=== PATIENT | female | born 1960 | race Caucasian/White ===

== ENCOUNTER 2019-11-24 16:53 | Emergency (ER) | payer OTHER, SELFPAY ==
--- NOTE | ~2019-11-24 | XR_ITS ---
EXAMINATION: XR shoulder LT min 2V DATE: 11/24/2019 17:32 INDICATION: Left shoulder pain. Fall. TECHNIQUE: 4 views of left shoulder were obtained. COMPARISON: Chest 2 views 03/29/2019 FINDINGS: There is new inferior dislocation of the acromion with respect to distal clavicle. There is widening of the coracoclavicular interval, consistent with coracoclavicular ligament tear. No fractu re. There is mild left glenohumeral joint osteoarthritis. IMPRESSION: 1. Type III left acromioclavicular separation. Reviewed, dictated and finalized at location A.
[2019-11-24 17:11] VITALS: BP 123/84; PULSE 99; RESP 16; TEMP 35.7; O2SAT 97
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
[2019-11-24 17:31] VITALS: TEMP 36.9
[2019-11-24] MEDS: KETOROLAC (*BKC) 60 MG/2 ML VIAL IM (17:38)
== END 2019-11-24 17:47 | disposition home or self-care (01) ==
PROVIDERS: Emergency Provider Nurse Practitioner Family
DX: S43.142A Inferior dislocation of left acromioclavicular joint, initial encounter (principal); J44.9 Chronic obstructive pulmonary disease, unspecified; K21.9 Gastro-esophageal reflux disease without esophagitis; M19.012 Primary osteoarthritis, left shoulder; F17.210 Nicotine dependence, cigarettes, uncomplicated; W19.XXXA Unspecified fall, initial encounter
CPT/HCPCS: 73030; 96372; 99213; A4565; G0463; J1885

== ENCOUNTER 2020-10-04 11:21 | Emergency (ER) | payer OTHER, SELFPAY ==
--- NOTE | ~2020-10-04 | XR_ITS ---
EXAMINATION: XR shoulder RT min 2V DATE: 10/04/2020 12:01 INDICATION: Lateral right shoulder pain. TECHNIQUE: AP internally and externally rotated, AP oblique externally rotated and transscapular Y vi ews of the right shoulder were obtained. COMPARISON: None FINDINGS: Normal alignment. No fracture.Glenohumeral joint space is normal with small marginal osteophyte at t he inferior glenoid. Mild acromion clavicular osteoarthritis with small inferiorly directed osteophyt e. Soft tissues are unremarkable. Visualized portions of the lungs are clear. Calcified right hilar l ymph nodes consistent with old granulomatous disease. IMPRESSION: Mild acromioclavicular and minimal glenohumeral osteoarthritis. No acute osseous abnormality. Reviewed, dictated and finalized at location A. IMPRESSION: Mild acromioclavicular and minimal glenohumeral osteoarthritis. No acute osseou s abnormality.
[2020-10-04 11:32] VITALS: BP 101/68; PULSE 80; RESP 16; TEMP 35.9; O2SAT 98
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
== END 2020-10-04 12:23 | disposition home or self-care (01) ==
PROVIDERS: Emergency Provider Nurse Practitioner Family; PCP Family Medicine
DX: M25.511 Pain in right shoulder (principal); F17.210 Nicotine dependence, cigarettes, uncomplicated; M19.90 Unspecified osteoarthritis, unspecified site; J44.9 Chronic obstructive pulmonary disease, unspecified; K21.9 Gastro-esophageal reflux disease without esophagitis
CPT/HCPCS: 73030; 99213; A4565; G0463

== ENCOUNTER 2020-10-31 10:54 | Emergency (ER) | payer OTHER, SELFPAY ==
[2020-10-31 11:03] VITALS: BP 99/69; PULSE 84; RESP 18; TEMP 36.4; O2SAT 98
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
[2020-10-31 11:13] VITALS: BP 99/69; PULSE 84; RESP 18; TEMP 36.4; O2SAT 98
== END 2020-10-31 11:41 | disposition home or self-care (01) ==
PROVIDERS: Emergency Provider Registered Nurse; PCP Family Medicine
DX: L08.9 Local infection of the skin and subcutaneous tissue, unspecified (principal); S50.861A Insect bite (nonvenomous) of right forearm, initial encounter; S40.861A Insect bite (nonvenomous) of right upper arm, initial encounter; W57.XXXA Bitten or stung by nonvenomous insect and other nonvenomous arthropods, initial encounter; F17.210 Nicotine dependence, cigarettes, uncomplicated; F41.9 Anxiety disorder, unspecified; M19.90 Unspecified osteoarthritis, unspecified site; J44.9 Chronic obstructive pulmonary disease, unspecified; K21.9 Gastro-esophageal reflux disease without esophagitis
CPT/HCPCS: 99213; G0463

== ENCOUNTER 2021-02-28 11:06 | Emergency (ER) | payer OTHER, SELFPAY ==
[2021-02-28 12:11] VITALS: BP 147/74; PULSE 63; RESP 16; TEMP 36.6; O2SAT 100
--- NOTE | 2021-02-28 12:11 | PC.NURSE ---
1206 was outside when called per [employer] tech.
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
== END 2021-02-28 13:02 | disposition home or self-care (01) ==
PROVIDERS: Emergency Provider Nurse Practitioner Family; PCP Family Medicine
DX: L02.411 Cutaneous abscess of right axilla (principal); J44.9 Chronic obstructive pulmonary disease, unspecified; F17.200 Nicotine dependence, unspecified, uncomplicated; Z79.891 Long term (current) use of opiate analgesic
CPT/HCPCS: 99213; G0463

== ENCOUNTER 2021-04-02 10:00 | Emergency (ER) | payer OTHER, SELFPAY ==
--- NOTE | ~2021-04-02 | XR_ITS ---
EXAMINATION: XR elbow RT min 3V DATE: 04/02/2021 10:45 INDICATION: Lateral right elbow pain TECHNIQUE: Anteroposterior, two oblique and lateral views of the right elbow were obtained. COMPARISON: None. FINDINGS: Alignment is normal. No fracture or joint effusion. Joint spaces are normal. Tiny olecranon enthesoph yte. Soft tissues are unremarkable. IMPRESSION: 1. No right elbow joint effusion or acute osseous abnormality. Reviewed, dictated and finalized at location A.
[2021-04-02 10:08] VITALS: BP 133/71; PULSE 61; RESP 16; TEMP 36.8; O2SAT 97
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
== END 2021-04-02 11:08 | disposition home or self-care (01) ==
PROVIDERS: Emergency Provider Nurse Practitioner Family; PCP Family Medicine
DX: S56.912A Strain of unspecified muscles, fascia and tendons at forearm level, left arm, initial encounter (principal); X50.9XXA Other and unspecified overexertion or strenuous movements or postures, initial encounter; M19.90 Unspecified osteoarthritis, unspecified site; J44.9 Chronic obstructive pulmonary disease, unspecified; K21.9 Gastro-esophageal reflux disease without esophagitis; F41.9 Anxiety disorder, unspecified
CPT/HCPCS: 73080; 99213; G0463

== ENCOUNTER 2022-06-16 13:13 | Emergency (ER) | payer OTHER, SELFPAY ==
--- NOTE | ~2022-06-16 | XR_ITS ---
EXAMINATION: XR wrist LT min 3V DATE: 06/16/2022 13:36 INDICATION: Left wrist injury and pain. TECHNIQUE: 4 views of left wrist were obtained. COMPARISON: None. FINDINGS: Bone alignment is normal. No fracture. Joint spaces are well maintained. IMPRESSION: 1. No fracture. Reviewed, dictated and finalized at location A. ING AIDE IMPRESSION: 1. No fracture.
[2022-06-16 13:26] VITALS: BP 121/62; PULSE 75; RESP 16; TEMP 36.2; O2SAT 97
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
== END 2022-06-16 14:47 | disposition home or self-care (01) ==
PROVIDERS: Emergency Provider Nurse Practitioner; PCP Family Medicine
DX: S63.502A Unspecified sprain of left wrist, initial encounter (principal); S66.912A Strain of unspecified muscle, fascia and tendon at wrist and hand level, left hand, initial encounter; W19.XXXA Unspecified fall, initial encounter; M19.90 Unspecified osteoarthritis, unspecified site; J44.9 Chronic obstructive pulmonary disease, unspecified; K21.9 Gastro-esophageal reflux disease without esophagitis; F41.9 Anxiety disorder, unspecified
CPT/HCPCS: 73110; 99213; G0463

== ENCOUNTER 2024-11-01 12:44 | Outpatient (CLI) | payer OTHER, SELFPAY ==
--- NOTE | ~2024-11-01 | CT_ITS ---
CT Scan of the Chest without Contrast: Clinical Indication: Lung cancer screening, nicotine dependence Technique: Contiguous sections were acquired throughout the chest without intravenous contrast. Dose reduction technique was used on this scan by utilizing automated exposure control and iterative recon struction technique. The dose-length product (DLP) was 84.53 mGy-cm. Findings: There is no evidence of any significant mediastinal, hilar or axillary lymphadenopathy. Calcified med iastinal and right hilar lymph nodes are present. Coronary artery calcifications are present. There is no evidence of pleural or pericardial effusion. There is moderate emphysema. Calcified right upper lobe granulomas are present. Images through the upper abdomen reveal no abnormalities. Impression: Lung RADS 2: Benign appearance. 12 month follow-up screening CT advised. Reviewed, dictated and finalized at location . Impression: Lung RADS 2: Benign appearance. 12 month follow-up screening CT advised.
--- NOTE | ~2024-11-01 | US_ITS ---
EXAMINATION: US abdomen complete DATE: 11/01/2024 13:22 INDICATION: liver disease TECHNIQUE: Multiple grayscale and Doppler ultrasound images of the abdomen were obtained. COMPARISON: None available. FINDINGS: The visualized portions of the pancreas are normal. Mildly increased liver parenchymal echo genicity. 1.2 cm simple right lobe cyst. No surface nodularity. Normal hepatopetal flow in the main p ortal vein. The gallbladder is normal with no abnormal wall thickening, pericholecystic fluid or ston es. The common bile duct measures 6 mm. There was no sonographic Dias sign. The visualized portions of the aorta and inferior vena cava are normal. The right kidney measures 10.1 x 5.2 x 4.5 cm. The left kidney measures 9.6 x 5.8 x 4.9 cm. The kidne ys demonstrate normal parenchymal echogenicity. There is no hydronephrosis. The spleen is normal in a ppearance and measures 9.4 cm. IMPRESSION: Echogenic liver, most commonly due to steatosis but also can be seen with hepatitis and fibrosis. Reviewed, dictated and finalized at location K. IMPRESSION: Echogenic liver, most commonly due to steatosis but also can be seen with hepat itis and fibrosis.
--- OUTSIDE RECORDS SUMMARY | 2024-11-01 12:53 | XMS_ITS | CONTINUITY OF CARE DOCUMENT ---
Author Name erin khan Address Unknown Organization [facility] Address [address] [place] [address] Phone [phone] Care Team Providers Care Responder Name Role Phone Chinmay JANE, Jonathon Unavailable Jonathon Moy MD Unavailable [phone] INSURANCE PROVIDERS Payer name Policy type / Coverage type [place] [employer] party ID [place] MEDICAID (2) Medicaid [id number]
--- OUTSIDE RECORDS SUMMARY | 2024-11-01 12:53 | XMS_ITS | Clinical Summary ---
Author Organization [facility] Address [address] [place] [address] Phone Care Team Providers Care Direct Support Worker Name Role Phone Provider, None Primary Care Provider Unavailabl e Allergies Active Allergy Reactions Criticality Noted Date Comments Codeine Itching 05/09/2024 Fish Allergy Anaphylaxis 05/09/2024 Sulfa Antibiotics Itching,Vomiting 05/09/2024 Medications acyclovir (ZOVIRAX) 400 MG Tablet Take 400 mg by mouth 2 times daily (with meals). 4 Active albuterol (PROVENTIL, VENTOLIN) (2.5 MG/3ML) 0.083% Nebulizer Soln 2.5 mg by Nebulization route every 8 hours as needed for Wheezing, Cough or Shortness of Breath. 4 Active albuterol 108 (90 Base) MCG/ACT Aerosol Solution take 2 Puffs by inhalation every 4 hours. 4 Active Symbicort 160-4.5 MCG/ACT Aerosol take 2 Puffs by inhalation 2 times daily. 4 Active cyclobenzaprine (FLEXERIL) 10 MG Tablet Take 10 mg by mouth in the morning and at bedtime. 4 Active FLUoxetine (PROzac) 20 MG Capsule Take 20 mg by mouth daily. 4 Active hydrOXYzine (VISTARIL) 25 MG Capsule Take 25 mg by mouth 3 times daily. 4 Active ibuprofen (MOTRIN) 800 MG Tablet Take 800 mg by mouth 3 times daily as needed for Mild or more severe pain. 4 Active montelukast (SINGULAIR) 10 MG Tablet Take 10 mg by mouth daily. 4 Active Spiriva Respimat 2.5 MCG/ACT Aerosol Solution take 2 Puffs by inhalation daily. 4 Active fluticasone (FLONASE) 50 MCG/ACT Suspension 1 [place]lee by Nasal route daily. Use in each nostril as directed. Active HYDROcodone-don taminophen (NORCO) 10-325 MG TabletIndicatio ns:Gunshot wound Take 1 Tablet by mouth 3 times daily. 90 Tablet 5 Active Active Problems No known active problems Encounters Date Type Department Care Team Description 08/25/2024 Results Follow-Up [address] [place] [address] Carmelo Richter, ALIN COLOGUAJAYDA 08/24/2024 [address] [place] [address] Provider, None patient outreach 08/08/2024 Telephone [facility] [address] [place] [id number] Heather Mccormick MD Follow-up; Advice Only; Medication Management; Medication Refill 08/04/2024 Telephone [facility] [address] [place] [address] Heather Mccormick MD Medication Refill from Last 3 Months Immunizations Immunization Administration Dates Next Due Influenza Vaccine 04/26/2024 Influenza Vaccine, Quadrivalent, PF 03/15,05/17/2021,02/25/2020,2017,05/05/2016 Influenza, Injectable, Quadrivalent 02/28/2024,1 06/20/2022 Influenza, Seasonal, Injecta ble, Undefined 05/04/2015,05/05/2014 Pneumococcal Vaccine Adult - 23 Valent 05/07/2020 RSV, Recombinant, Protein [place] bunit Rsvpref, Adjuvant Recon (Arexvy) 04/28/2023 Family History Medical History Relation Name Comments Ovarian Cancer Maternal Grandmother Lung Cancer Mother Ovarian Cancer Paternal Aunt Uterine Cancer Paternal Aunt Ovarian Cancer Paternal Grandmother Relation Name Status Comments Father Alive Maternal Grandmother Mother Paternal Aunt Paternal Grandmother Social History Tobacco Use Types Packs/Day Years Used Date Smoking Tobacco: Every Day Cigarettes 0.3 34.4 Started: 1990 Smokeless Tobacco: Never Tobacco Cessation:Ready to Q uit: Not Asked; Counseling Given: Not Answered Alcohol Use Standard Drinks/Week Comments Yes 0 (1 standard drink = 0.6 oz pur e alcohol) Once a month. A beer or two [facility] Utilities Answer Date Recorded In the past 12 months has th e electric, gas, oil, or water company threatened to shut off services in your home? Patient declined 08/15/2024 Social Connection and Isolation Panel [NHANES] A nswer Date Recorded In a typical week, how many times do you talk on the phone with family, friends, or neighbors? Patient declined 08/15/2024 How often do you get togethe r with friends or relatives? Patient declined 08/15/2024 How often do you attend spiritism or temple serv ices? Patient declined 08/15/2024 Do you belong to any clubs o r organizations such as spiritism groups, unions, fraternal or athletic groups, or school groups? Patient declined 08/15/2024 How often do you attend meet ings of the clubs or organizations you belong to? Patient declined 08/15/2024 Are you , , di vorced, , never , or living with a partner? Patient declined 08/15/2024 AUDIT-C Answer Date Recorded Q1: How often do you have a drink containing alc ohol? Patient declined 08/15/2024 Q2: How many drinks containi ng alcohol do you have on a typical day when you are drinking? Patient declined 08/15/2024 Q3: How often do you have si x or more drinks on one occasion? Patient declined 08/15/2024 Overall Financial Resource Strain (CARDIA) Answe r Date Recorded How hard is it for you to pa y for the very basics like food, housing, medical care, and heating? Patient declined 08/15/2024 PHQ-2 Answer Date Recorded Total Score - Questions 1-9 6 04/16 [place] [employer] - Occupational Stress Questionnaire Answer Date Recorded Do you feel stress - tense, restless, nervous, or anxious, or unable to sleep at night because your mind is troubled all the time - these days? Patient declined 08/15/2024 Exercise Vital Sign Answer Date Recorde d On average, how many days pe r week do you engage in moderate to strenuous exercise (like a brisk walk)? Patient declined On average, how many minutes do you engage in exercise at this level? Patient declined 08/15/2024 Hunger Vital Sign Answer Date Recorded Within the past 12 months, y ou worried that your food would run out before you got the money to buy more. Patient declined Within the past 12 months, t he food you bought just didn't last and you didn't have money to get more. Patient declined 08/2024 PRAPARE - Transportation Answer Date Re corded In the past 12 months, has l ack of transportation kept you from medical appointments or from getting medications? Patient declined 08/15/2024 In the past 12 months, has l ack of transportation kept you from meetings, work, or from getting things needed for daily living? Patient declined 08/15/2024 Housing Stability Vital Sign Answer Ottoniel e Recorded In the last 12 months, was t here a time when you were not able to pay the mortgage or rent on time? Patient declined 08/16/19 25 In the past 12 months, how m any times have you moved where you were living? 0 08/15/2024 At any time in the past 12 m [facility], were you homeless or living in a custodial (including now)? Patient declined 08/15/2024 Comments Unknown Sex and Gender Information Value Date Recorded Sex Assigned at Not on file Legal Sex Female 9:37 AM TRANSPORTATION SUPERINTENDENT Gender Identity Not on file Sexual Orientation Not on file Last Filed Vital Signs Vital Sign Reading Time Taken Comments Blood Pressure 122/64 05/09/2024 9:14 AM TRANSPORTATION SUPERINTENDENT Pulse 68 05/09/2024 9:14 AM TRANSPORTATION SUPERINTENDENT Temperature 36.3 C (97.3 F) 05/09/2024 9:14 AM TRANSPORTATION SUPERINTENDENT Respiratory Rate 18 05/09/2024 9:14 AM TRANSPORTATION SUPERINTENDENT Oxygen Saturation 96% 05/09/2024 9:14 AM TRANSPORTATION SUPERINTENDENT Inhaled Oxygen Concentration - - Weight 67.9 kg (149 lb 9.6 oz) 05/09/2024 9:14 A M TRANSPORTATION SUPERINTENDENT Height 166.4 cm (5' 5.5 ) 05/09/2024 9:14 AM TRANSPORTATION SUPERINTENDENT Body Mass Index 24.52 05/09/2024 9:14 AM TRANSPORTATION SUPERINTENDENT Plan of Treatment Health Maintenance Due Date Last Done Comments Hepatitis C Virus (HCV) Screening 1962 Mammogram 1962 TdaP Immunization 1962 Pap Smear 09/12/1983 Cervical Cancer Screening (CCS) 1992 HPV/Cotest 1992 Colonoscopy 09/12/2007 Immunochemical Fecal Occult Blood 2012 Zoster Immunization (1 of 2) 2012 Pneumococcal Immunization (50+ years) (2 of 2 - PCV) 05/07/2021 05/07/2020 SARS-COV-2 Immunization ( - season) 2024 04/28/2023, 03/27/2022, 11/01/2020 Cologuard 08/21/2027 08/20/2024 Colorectal Cancer Screening 08/21/2027 Pneumococcal Immunization Combined Discontinued 05/07/2020 Respiratory Syncytial Virus (RSV) Immunization (Adult) Completed 04/28/2023 Influenza Immunization Completed , 02/28/2024, 04/20/2023, Additional history exists Hepatitis B Immunization Aged Out No longer eligible based on patient's age to complete this topic Meningococcal Immunization (ACWY) Aged Out No longer eligible based on patient's age to complete this topic Rotavirus Immunization Aged Out No lo nger eligible based on patient's age to complete this topic Procedures Procedure Name Priority Date/Time Associated Diagnosis Comments COLOGUARD Routine 08/20/2024 7:10 AM TRANSPORTATION SUPERINTENDENT Colon cancer screening from Last 3 Months Results * COLOGUARD (08/20/2024 7:10 AM TRANSPORTATION SUPERINTENDENT) Cologuard Negative Negative [facility] Comment: NEGATIVE TEST RESULT. A negative Cologuard result indicates a low likelihood that a colorectal cancer (CRC) or advanced adenoma (adenomatous polyps with more advanced pre-malignant features) is present. The chance that a person with a negative Cologuard test has a colorectal cancer is less than 1 in 1500 (negative predictive value >99.9%) or has an advanced adenoma is less than 5.3% (negative predictive value 94.7%). These data are based on a prospective cross-sectional study of 10,000 individuals at average risk for colorectal cancer who were screened with both Cologuard and colonoscopy. (Paige Oneil al, N Engl J Med 2014;370(14):2125-1355) The normal value (reference range) for this assay is negative. COLOGUARD RE-SCREENING RECOMMENDATION: Periodic colorectal cancer screening is an important part of preventive healthcare for asymptomatic individuals at average risk for colorectal cancer. Following a negative Cologuard result, the [place] Cancer Society and U.S. Multi-Society Task Force screening guidelines recommend a Cologuard re-screening interval of 3 years. References: [place] [employer] Society Guideline for Colorectal Cancer Screening: https://www.cancer.org/cancer/aynuv-cdruan-skzrud/rctlhwdqi-jqdiftkry-ryrlviy/ acs-recommendations.html.; Axel MICHELLE, Derrick WITT, Marielle TafoyaK, Colorectal Cancer Screening: Recommendations for Physicians and Patients from the U.S. Multi-Society Task Force on Colorectal Cancer Screening , Am J Gastroenterology 2017; 112:3168-9249. TEST DESCRIPTION: Composite algorithmic analysis of stool DNA-biomarkers with hemoglobin immunoassay. Quantitative values of individual biomarkers are not reportable and are not associated with individual biomarker result reference ranges. Cologuard is intended for colorectal cancer screening of adults of either sex, 45 years or older, who are at average-risk for colorectal cancer (CRC). Cologuard has been approved for use by the U.S. FDA. The performance of Cologuard was established in a cross sectional study of average-risk adults aged 50-84. Cologuard performance in patients ages 45 to 49 years was estimated by sub-group analysis of near-age groups. Colonoscopies performed for a positive result may find as the most clinically significant lesion: colorectal cancer [4.0%], advanced adenoma (including sessile serrated polyps greater than or equal to 1cm diameter) [20%] or non- advanced adenoma [31%]; or no colorectal neoplasia [45%]. These estimates are derived from a prospective cross-sectional screening study of 10,000 individuals at average risk for colorectal cancer who were screened with both Cologuard and colonoscopy. (Paige Cortez et al, N Engl J Med 2014;370(14):7070-2501.) Cologuard may produce a false negative or false positive result (no colorectal cancer or precancerous polyp present at colonoscopy follow up). A negative Cologuard test result does not guarantee the absence of CRC or advanced adenoma (pre-cancer). The current Cologuard screening interval is every 3 years. ([place] Cancer Society and U.S. Multi-Society Task Force). Cologuard performance data in a 10,000 patient pivotal study using colonoscopy as the reference method can be accessed at the following location: www.Splash.FM.Netuitive/results. Additional description of the Cologuard test process, warnings and precautions can be found at www.buySAFEogcommercetoolsrd.com. Stool 08/20/2024 7:10 AM TRANSPORTATION SUPERINTENDENT 08/21/2024 10:29 PM CDT us Heather Mccormick MD BODY FLUIDS & STOOLS ORDER YADI Final Result [employer], [facility] [address] [place] [address], [employer] [address] [place] [address] from Last 3 Months Insurance MEDICAID [facility] Care Teams Direct Support Worker Relationship Specialty Start Date End Date Provider, None [place] PCP - General 08/24/24
== END 2024-11-01 12:45 | disposition home or self-care (01) ==
PROVIDERS: PCP Emergency Medicine; Visit Provider Emergency Medicine
DX: Z12.2 Encounter for screening for malignant neoplasm of respiratory organs (principal); Z87.891 Personal history of nicotine dependence; K76.89 Other specified diseases of liver
CPT/HCPCS: 71271; 76700